=== PATIENT | male | born 1945 | race Caucasian/White ===

== ENCOUNTER → 2017-03-31 | Outpatient (CLI) | payer MEDICARE, OTHER ==
[~2017-03-31] MED LIST: FLOMAX 0.40.4 MG/CAP PO; MOTRIN 200200 MG/TAB PO; NORCO 325 MG-51 TAB PO
== END ==
LOC: COL.RAD 13:26
DX: N43.3 Hydrocele, unspecified (principal); N50.3 Cyst of epididymis

== ENCOUNTER 2018-10-01 12:27 | Emergency (ER) | payer MEDICARE, OTHER ==
[~2018-10-01] VITALS: Ht 175.3 cm; Wt 76.4 kg
[2018-10-01 12:49] VITALS: TEMP 98.8
[2018-10-01] MEDS ORDERED: NORCO 325 MG-51 TAB PO ×2 (13:10→15:11)
[2018-10-01] MEDS ORDERED: CEPHALEXIN500 M1 PO (14:42)
[2018-10-01 15:39] VITALS: BP 156/98; PULSE 64
== END 2018-10-01 15:41 | disposition home or self-care (01) ==
LOC: COL.ER 12:27
DX: S66.120A Laceration of flexor muscle, fascia and tendon of right index finger at wrist and hand level, initial encounter (principal); Z23 Encounter for immunization; W23.0XXA Caught, crushed, jammed, or pinched between moving objects, initial encounter
CPT/HCPCS: A4216; J0690